=== PATIENT | male | born 1945 | race Caucasian/White ===

== ENCOUNTER 2019-11-29 13:57 | Emergency (ER) | payer SELFPAY ==
[2019-11-29 14:05] VITALS: BP 123/72
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
--- NOTE | 2019-11-29 15:07 | RADIOLOGY REPORT (SQ) ---
EXAM DESCRIPTION: SHOULDER RIGHT 2 OR MORE VIEWS IMAGES COMPLETED DATE/TIME: 11/29/2019 2:56 pm REASON FOR STUDY: injury COMPARISON: None. NUMBER OF VIEWS: Three views. TECHNIQUE: Internal rotation, external rotation, and Y view images acquired of the right shoulder. LIMITATIONS: None. FINDINGS: MINERALIZATION: Normal. BONES: No acute fracture dislocation. No suspicious osseous lesions. Glenohumeral and acromioclavic ular osteophytosis. JOINTS: No dislocation. Globular calcific density at the expected supraspinatus insertion suggestive calcific tendinosis. VISUALIZED LUNGS AND RIBS: No pneumothorax. No rib fracture. SOFT TISSUES: No radiopaque foreign body. OTHER: No other significant finding. IMPRESSION: 1. No acute bony abnormality of the right shoulder. 2. Acromioclavicular and glenohumeral osteoarthropathy. Globular calcific density at the supraspina tus insertion suggestive of calcific tendinosis. TECHNICAL DOCUMENTATION: JOB ID: [id number] 2010 [employer]- All Rights Reserved Reading location - IP/workstation name: [email or web address]
== END 2019-11-29 16:00 | disposition left against medical advice (07) ==
LOC: ER 13:57
DX: R07.89 Other chest pain (principal); M25.511 Pain in right shoulder; W18.09XA Striking against other object with subsequent fall, initial encounter; Y93.H9 Activity, other involving exterior property and land maintenance, building and construction; M19.011 Primary osteoarthritis, right shoulder; Z88.6 Allergy status to analgesic agent; Z88.5 Allergy status to narcotic agent; Z53.20 Procedure and treatment not carried out because of patient's decision for unspecified reasons
CPT/HCPCS: 99281

== ENCOUNTER 2019-11-30 02:52 | Emergency (ER) | payer SELFPAY ==
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
[2019-11-30] MEDS ORDERED: HYDROCODONE/ACETAMINOPHEN 5-325 MG (6 TAB/ER DISP) PO PRN (05:28)
[2019-11-30 05:45] VITALS: BP 130/80
== END 2019-11-30 05:45 | disposition home or self-care (01) ==
LOC: ER 02:52
DX: M25.511 Pain in right shoulder (principal); W18.09XA Striking against other object with subsequent fall, initial encounter; Y93.H9 Activity, other involving exterior property and land maintenance, building and construction; Y92.009 Unspecified place in unspecified non-institutional (private) residence as the place of occurrence of the external cause; F17.200 Nicotine dependence, unspecified, uncomplicated; M19.011 Primary osteoarthritis, right shoulder; M75.31 Calcific tendinitis of right shoulder
CPT/HCPCS: 99284

== ENCOUNTER 2020-01-08 10:40 | Emergency (ER) | payer OTHER, MEDICARE ==
[2020-01-08] MEDS ORDERED: METHYLPREDNISOLONE INJ 125 MG/2 ML SDV IV ONE (11:09)
[2020-01-08] MEDS ORDERED: KETOROLAC TROMETHAMINE INJ/PF 30 MG/1 ML SDV IV ONE (11:09)
[2020-01-08] MEDS ORDERED: LORAZEPAM INJ 2 MG/1 ML VIAL IV ONE (11:12)
[2020-01-08] MEDS ORDERED: ONDANSETRON HCL INJ/PF 4 MG/2 ML SDV IV ONE (11:13)
[2020-01-08] MEDS ORDERED: MORPHINE SULFATE 10 MG/ML INJ IV ONE ×2 (11:13→13:41)
[2020-01-08 11:39] LABS: ABSOLUTE BASOPHILS # (AUTO) 0.1 10^3/uL (0.0-0.2); ABSOLUTE EOSINOPHILS # (AUTO) 0.4 10^3/uL (0.0-0.6); ABSOLUTE LYMPHOCYTES (AUTO) 2.8 10^3/uL (0.5-4.7); BASOPHILS % (AUTO) 0.9 % (0-2); EOSINOPHILS % (AUTO) 2.9 % (0-6); HEMATOCRIT 49.2 % (37.9-51.0); HEMOGLOBIN 16.8 g/dL (13.5-17.0); LYMPHOCYTES % (AUTO) 20.9 % (13-45); MEAN CORPUSCULAR HEMOGLOBIN 32.1 pg (27.0-33.4); MEAN CORPUSCULAR HGB CONC 34.2 g/dL (32.0-36.0); MEAN CORPUSCULAR VOLUME 94 fl (80-97); MONOCYTES % (AUTO) 7.3 % (3-13); PLATELET COUNT 242 10^3/uL (150-450); RED BLOOD COUNT 5.24 10^6/uL (4.35-5.55); RED CELL DISTRIBUTION WIDTH 13.7 % (11.5-14.0); TOTAL CELLS COUNTED % (AUTO) 100 %; WHITE BLOOD COUNT 13.3 10^3/uL (4.0-10.5)
[2020-01-08 12:08] LABS: ALBUMIN 4.9 g/dL (3.5-5.0); ALKALINE PHOSPHATASE 65 U/L (38-126); ANION GAP 11 (5-19); ASPARTATE AMINO TRANSFERASE 24 U/L (17-59); BILIRUBIN,DIRECT 0.4 mg/dL (0.0-0.4); BILIRUBIN,TOTAL 0.6 mg/dL (0.2-1.3); BLOOD UREA NITROGEN 20 mg/dL (7-20); CALCIUM 9.4 mg/dL (8.4-10.2); CARBON DIOXIDE 26 mmol/L (22-30); CHLORIDE 102 mmol/L (98-107); GLUCOSE 170 mg/dL (75-110); POTASSIUM 4.1 mmol/L (3.6-5.0); TOTAL PROTEIN 8.4 g/dL (6.3-8.2)
--- NOTE | 2020-01-08 12:25 | ER Document Report ---
Entered by SHE SANTAMARIA SCRIBE 01/08/20 1108 Acting as scribe for:JORDI RAY MD ED General - General Chief Complaint: Shoulder Pain Stated Complaint: SHOULDER PAIN Time Seen by Provider: 01/08/20 10:51 Mode of Arrival: Ambulatory Information source: Patient Notes: This 74 year old male patient presents to the emergency department today with complaints of right shoulder and neck pain that radiates down his left arm and it is a "tingling" sensation. Patient reports he has been seen twice in the past for this and was told it was like a rotator cuff injury. TRAVEL OUTSIDE OF THE [place] IN LAST 30 DAYS: No - Related Data Allergies/Adverse Reactions: codeine [Codeine] Allergy (Verified 02/09/12 21:44) Past Medical History - General Information source: Patient - Social History Smoking Status: Current Every Day Smoker Cigarette use (# per day): Yes Chew tobacco use (# tins/day): No Frequency of alcohol use: Occasional Drug Abuse: None Lives with: Family Family History: Reviewed & Not Pertinent Patient has homicidal ideation: No Endocrine Medical History: Reports: Hx Diabetes Mellitus Type 2 - diet controlled Past Surgical History: Reports: Hx Orthopedic Surgery - R KNEE ARTHROSCOPY - Immunizations Hx Diphtheria, Pertussis, Tetanus Vaccination: No Review of Systems - Review of Systems Constitutional: No symptoms reported EENT: No symptoms reported Cardiovascular: No symptoms reported Respiratory: No symptoms reported Gastrointestinal: No symptoms reported Genitourinary: No symptoms reported Male Genitourinary: No symptoms reported Musculoskeletal: See HPI, Back pain, Joint pain Skin: No symptoms reported Hematologic/Lymphatic: No symptoms reported Neurological/Psychological: Tingling -: Yes All other systems reviewed and negative Physical Exam - Vital signs Vitals: Temp 98.8 F 01/08/20 10:40 - Notes Notes: Physical Exam: General: Alert, appears uncomfortable. HEENT: Normocephalic. Atraumatic. PERRL. Extraocular movements intact. Oropharynx clear. Neck: Right lateral neck tenderness with palpation, Clavicular portion of the Sternocleidomastoid tenderness with palpation, entire right shoulder and right upper lateral arm is tender with palpation, neck extension causes pain and neck extension tilted to the right causes unbearable pain. Respiratory: No respiratory distress. Clear and equal breath sounds bilaterally. Cardiovascular: Regular rate and rhythm. Abdominal: Obese. Non-tender. No distension. Normal Bowel Sounds. Back: No gross abnormalities. Extremities: Moves all four extremities. Upper extremities: Normal inspection. Normal ROM. Lower extremities: Normal inspection. No edema. Normal ROM. Neurological: Normal cognition. AAOx4. Normal speech. Psychological: Normal affect. Normal Mood. Skin: Warm. Dry. Normal color. Course - Re-evaluation Re-evalutation: 01/08/20 13:43 We are now about 2 hours post patient getting the dose of Toradol 15mg, morphine 3 mg, and Ativan 1 mg IV. Patient does feel better, he is able to turn his neck some now, but he gets severe pain if he tries to extend the neck. We will give him an additional morphine 5 mg IV now and have Ativan as needed on standby in the MRI machine. - Vital Signs Vital signs: Temp Pulse Resp BP Pulse Ox 98.8 F 01/08/20 10:40 - Laboratory Result Diagrams: 01/08/20 11:26 01/08/20 11:26 Laboratory results interpreted by me: 01/08/20 01/08/20 01/08/20 11:26 11:26 11:26 WBC 13.3 H Absolute Neuts (auto) 9.0 H Glucose 170 H Hemoglobin A1c % 8.3 H Total Protein 8.4 H - Diagnostic Test Radiology reviewed: Image reviewed, Reports reviewed - Cervical MRI showed mild neural foraminal narrowing bilaterally at C4-5, severe neural foraminal narrowing bilaterally at C5-6, mild spinal stenosis at C6-7 due to central disc herniation and arthropathy with moderate neural foraminal narrowing bilaterally. Discharge - Discharge Clinical Impression: Cervical radicular pain Right shoulder pain Qualifiers: Chronicity: chronic Qualified Code(s): M25.511 - Pain in right shoulder Hyperglycemia due to type 2 diabetes mellitus Qualifiers: Diabetes mellitus correction insulin use: without correction use Qualified Code(s): E11.65 - Type 2 diabetes mellitus with hyperglycemia Condition: Stable Disposition: HOME, SELF-CARE Additional Instructions: Diabetes: You have an abnormally high blood sugar, suspicious for diabetes. Not all high blood sugar requires long-term treatment. High blood sugar can be due to medications, , or the stress of illness. (These cases are "borderline diabetes.") If the doctor feels your high blood sugar might get better with time, you may not require treatment now. You will be scheduled for further evaluation. It's very important that you follow through. Uncontrolled high blood sugar leads to early heart disease, strokes, nerve damage, eye damage, and kidney damage. All diabetics should follow a diet designed to control the blood sugar. Overweight diabetics should exercise regularly and lose weight. If this is not sufficient to control the blood sugar, pills or insulin shots are necessary. Younger people who develop diabetes almost always require insulin daily. Home testing of blood sugars or urine sugar is required. Diabetic teaching is available to help you figure insulin doses and monitor the blood sugar. Call the physician if there is faintness, excess sleepiness, or very rapid breathing. If hypoglycemia (LOW blood sugar) develops, symptoms are shakiness, weakness, sweating, and confusion. In this case, you should eat or drink something with sugar at once. Radiculopathy: Radiculopathy is irritation of a nerve. Sometimes this is called "pinched nerve." The pain can be sharp and stabbing, constant and dull, or burning in nature. The pain can occur in any area of the chest, shoulders, or arms. Sometimes the pain is provoked by coughing or moving. Radiculopathy can be caused by physical pressure on a nerve, such as a herniated disc or swollen joint in the spine. It can also be caused by viral infections within the nerve or by nerve damage due to diabetes or blood vessel disease. Radicular pain is treated with antiinflammatory medicine. Injections may help resistant cases, if we can identify a single nerve that's causing the pain. Surgery is usually not necessary. If symptoms do not improve with time, you may need additional testing, such as an MRI or EMG (electromyogram). Return if there is local weakness or numbness, shortness of breath, increasing pain, or other new symptoms. Much of the pain and numbness you are feeling in your right arm is probably due to cervical radiculopathy or pinched nerves in your neck. There is also arthritis in the shoulder joint which is probably contributing to some of your shoulder pain. Take the medications as prescribed. Use the sling to support the weight of the arm so you can let the muscles relax. Keep your head and neck tilted forward to prevent pinching the nerves that occurs when you extend your head and neck. Call Dr. Bailey's office tomorrow to schedule an appointment in the next several days to reevaluate your shoulder and to review your neck MRI. Start taking the metformin as prescribed and follow-up with a local primary care provider to manage your diabetes and other general health issues. Take copies of your lab work with you to see a primary care provider. RETURN TO THE EMERGENCY ROOM IF ANY NEW OR WORSENING SYMPTOMS. Prescriptions: Cyclobenzaprine HCl [Flexeril 10 mg Tablet] 10 mg PO Q8 #30 tablet Metformin HCl 500 mg PO BID #60 tablet Hydrocodone/Acetaminophen [[place] 5-325 mg Tablet] 1 tab PO ASDIR PRN #20 tablet PRN Reason: For Pain Referrals: UVALDO BAILEY JR, DO [ACTIVE PROVISIONAL STAFF] - Follow up in 1 week I personally performed the services described in the documentation, reviewed and edited the documentation which was dictated to the scribe in my presence, and it accurately records my words and actions.
[2020-01-08 12:53] LABS: APPEARANCE,URINE CLEAR; BILIRUBIN,URINE NEGATIVE (NEGATIVE); COLOR,URINE YELLOW; GLUCOSE, URINE NEGATIVE (NEGATIVE); KETONES,URINE NEGATIVE (NEGATIVE); LEUKOCYTE ESTERASE,URINE NEGATIVE (NEGATIVE); NITRITE,URINE NEGATIVE (NEGATIVE); PROTEIN,URINE NEGATIVE (NEGATIVE); URINE SPECIFIC GRAVITY 1.016; UROBILINOGEN,URINE NEGATIVE mg/dL (<2.0)
[2020-01-08] MEDS ORDERED: LORAZEPAM INJ 2 MG/1 ML VIAL IV PRN (13:42)
--- NOTE | 2020-01-08 14:52 | RADIOLOGY REPORT (SQ) ---
EXAM DESCRIPTION: MRI CERVICAL SPINE WITHOUT IMAGES COMPLETED DATE/TIME: 01/08/2020 2:31 pm REASON FOR STUDY: RUE radiculopathy COMPARISON: None. TECHNIQUE: Sagittal and Axial imaging includes T1, T2, STIR and gradient echo sequences. LIMITATIONS: Artifact from motion and body habitus. FINDINGS: ALIGNMENT: Normal. VERTEBRAE: Intact. BONE MARROW: Normal. No marrow replacement or reactive changes. DISCS: Desiccation multiple levels. HARDWARE: None in the spine. CORD AND BASE OF BRAIN: Normal in size and signal intensity. SOFT TISSUES: No soft tissue masses. C1-C2: No significant spinal stenosis. C2-C3: No significant stenosis. C3-C4: No significant stenosis. Uncovertebral arthropathy. C4-C5: Disc bulge and uncovertebral arthropathy. Moderate neural foraminal narrowing bilaterally. C5-C6: Severe neural foraminal narrowing bilaterally. C6-C7: Mild spinal stenosis due to central disc herniation and uncovertebral arthropathy. Moderate n eural foraminal narrowing bilaterally. C7-T1: No significant stenosis. UPPER THORACIC: Incompletely imaged. No significant spinal stenosis or exit foraminal stenosis. OTHER: No other significant finding. IMPRESSION: Technical limitations. Mild spinal stenosis at C6-7. Varying degrees of neural foramin al stenosis as described above. TECHNICAL DOCUMENTATION: JOB ID: [id number] 2010 [employer]- All Rights Reserved Reading location - IP/workstation name: [email or web address]
== END 2020-01-08 16:50 | disposition home or self-care (01) ==
LOC: ER 10:40
DX: M48.02 Spinal stenosis, cervical region (principal); M54.12 Radiculopathy, cervical region; E11.65 Type 2 diabetes mellitus with hyperglycemia; Z88.6 Allergy status to analgesic agent; Z88.5 Allergy status to narcotic agent
CPT/HCPCS: 96376; 99285; 96374; 96375; 36415; 85025; 80053; 81001; 83036; 72141; J2930; J1885; J2270; J2060; J2405